=== PATIENT | female | born 1990 | race Two or more races ===

== ENCOUNTER 2016-09-12 03:39 | Inpatient (IN) | payer MEDICAID ==
[~2016-09-12] VITALS: Ht 152.4 cm; Wt 61.2 kg
[2016-09-12] MEDS ORDERED: LACT. RINGERS/OXYTOCIN 20UNITS 1,000 ML IV SCH ×2 (04:19→09:45)
[2016-09-12] MEDS: LACTATED RINGER'S 1,000 ML IV SCH ×2 (04:19→12:19)
[2016-09-12] MEDS ORDERED: LIDOCAINE 2%HCL (LOCAL ANESTH.) INJ 20ML MDV IJ ONE (04:30)
[2016-09-12] MEDS ORDERED: PHISODERM TOP SOLN 240ML BTL TOP PRN (04:30)
[2016-09-12] MEDS ORDERED: METHYLERGONOVINE MALEATE 0.2 MG/ML AMP IM PRN (04:30)
[2016-09-12] MEDS ORDERED: CARBOPROST TROMETHAMINE 250 MCG/1ML VIAL IM PRN (04:30)
[2016-09-12] MEDS ORDERED: WITCH HAZEL-GLYCERIN PAD TOP PRN (04:30)
[2016-09-12] MEDS ORDERED: DERMOPLAST 60ML BOTTLE TOP PRN (04:30)
[2016-09-12 05:09] LABS: Urine RBC None Seen /hpf (0 - 4)
[2016-09-12 05:16] LABS: Basophils # (auto) 0 uL; Basophils % (auto) 0.3 % (0.0-2.0); Eosinophils # (auto) 0 uL; Eosinophils % (auto) 0.7 % (0.0-7.0); Hematocrit 37.2 % (36.0-46.0); Hemoglobin 12.4 g/dL (12.2-16.2); Lymphocytes # (auto) 1.8 uL; Mean Corpuscular Hgb Conc. 33.4 g/dL (32.0-36.0); Mean Corpuscular Volume 92.7 fL (80.0-100.0); Mean Platelet Volume 7.8 fL (7.4-10.4); Monocytes # (auto) 0.5 uL; Neutrophils # (auto) 4.4 uL; Platelet Count (auto) 246 10^3/uL (140-450); Red Cell Distribution Width 13.6 % (11.6-16.0); White Blood Cell 6.8 10^3/uL (4.4-10.8)
[2016-09-12 05:22] LABS: Urine Bilirubin Negative (Negative); Urine Blood Negative /uL (Negative); Urine Color Yellow (Yellow); Urine Glucose Normal (Normal); Urine Ketone Negative (Negative); Urine Nitrite Negative (Negative); Urine Urobilinogen Normal (Negative)
[2016-09-12 05:30] LABS: Partial Thromboplastin Time 31.3 sec (22.64-33.71); Prothrombin Time 9.6 sec (9.37-12.3)
[2016-09-12 05:34] LABS: INR 0.88 (0.9-1.15)
[2016-09-12 05:40] LABS: Albumin 2.4 g/dL (3.4-5.0); BUN/Creatinine Ratio 13.6; Bilirubin, Total 0.2 mg/dL (0.2-1.0); Calcium 8.6 mg/dL (8.5-10.1); Potassium 3.6 mmol/L (3.5-5.1); Total Protein 6.7 g/dL (6.4-8.2)
[2016-09-12] MEDS ORDERED: PROMETHAZINE HCL 25 MG/ML 1ML ONE (08:35)
[2016-09-12] MEDS ORDERED: BUTORPHANOL TARTRATE 2 MG/1 ML VIAL ONE (08:35)
[2016-09-12] MEDS: BUTORPHANOL TARTRATE 2 MG/1 ML VIAL IV PRN ×3 (08:44→14:33)
[2016-09-12] MEDS ORDERED: TERBUTALINE SULFATE 1 MG/ML 1ML VIAL SC ONE (08:50)
[2016-09-12] MEDS ORDERED: SUCCINYLCHOLINE CHLORIDE 20 MG/ML 10ML VIAL IV ONE (09:02)
[2016-09-12] MEDS ORDERED: PHENYLEPHRINE INJ 10 MG/ML 5ML VIAL IV ONE (09:05)
[2016-09-12] MEDS ORDERED: fentaNYL CITRATE 100 MCG/2 ML VL ONE (09:11)
[2016-09-12] MEDS ORDERED: MIDAZOLAM HCL 1MG/1ML-2 ML VIAL ONE (09:11)
[2016-09-12] MEDS ORDERED: MEPERIDINE HCL (50 MG/ML) 1 ML VIAL ONE (09:12)
[2016-09-12] MEDS ORDERED: PROPOFOL 10 MG/ML 20 ML IV ONE (09:34)
[2016-09-12] MEDS ORDERED: METOCLOPRAMIDE HCL 5MG/ml INJ 2ml VIAL ONE (09:34)
[2016-09-12] MEDS ORDERED: KETOROLAC TROMETH 30 MG/ML 1ML VIAL ONE (09:34)
[2016-09-12] MEDS ORDERED: HYDROmorphone HCL 2 MG/ML VL IV PRN (09:45)
[2016-09-12] MEDS ORDERED: MORPHINE SULF INJ 2 MG/ML SYRINGE 1ML IV PRN ×2 (09:45→10:15)
[2016-09-12] MEDS ORDERED: ONDANSETRON HCL 4 MG/2 ML VIAL IV PRN (09:45)
[2016-09-12] MEDS ORDERED: PROMETHAZINE HCL 25 MG/ML 1ML IV ONE (10:00)
[2016-09-12] MEDS ORDERED: OXYTOCIN 10UNIT/ML 1ML VIAL ONE (10:11)
[2016-09-12] MEDS ORDERED: HYDROmorphone HCL 2 MG/ML VL ONE (10:12)
[2016-09-12] MEDS ORDERED: KETOROLAC TROMETH 30 MG/ML 1ML VIAL IV ONE (10:15)
[2016-09-12] MEDS ORDERED: LABETALOL HCL 5 MG/ML 4ML SYRINGE IV PRN (10:15)
[2016-09-12] MEDS ORDERED: ePHEDrine SULFATE 50 MG/ML AMP IV PRN (10:15)
[2016-09-12] MEDS ORDERED: ONDANSETRON HCL 4 MG/2 ML VIAL IV ONE (10:15)
[2016-09-12] MEDS: HYDROmorphone HCL 2 MG/ML VL IV PRN ×2 (10:16→10:26)
[2016-09-12 11:30] VITALS: BP 104/68
[2016-09-12 12:00] VITALS: BP 104/63
[2016-09-12] MEDS: ceFAZolin 1GM/50ML D5W 50 ML IV SCH ×2 (14:00→22:00)
[2016-09-12 16:00] VITALS: BP 99/60
[2016-09-12] MEDS: KETOROLAC TROMETH 30 MG/ML 1ML VIAL IV PRN (19:21)
[2016-09-12 19:27] LABS: Basophils # (auto) 0 uL; Basophils % (auto) 0.3 % (0.0-2.0); Eosinophils # (auto) 0 uL; Eosinophils % (auto) 0.1 % (0.0-7.0); Hematocrit 32.3 % (36.0-46.0); Hemoglobin 11.1 g/dL (12.2-16.2); Lymphocytes % (auto) 19.1 % (10.0-50.0); Mean Corpuscular Hemoglobin 31.5 pg (28.0-32.0); Mean Corpuscular Hgb Conc. 34.3 g/dL (32.0-36.0); Mean Corpuscular Volume 91.8 fL (80.0-100.0); Mean Platelet Volume 7.7 fL (7.4-10.4); Monocytes # (auto) 0.8 uL; Monocytes % (auto) 7.9 % (0.0-12.0); Neutrophils # (auto) 7.5 uL; Neutrophils % (auto) 72.6 % (37.0-80.0); Platelet Count (auto) 226 10^3/uL (140-450); Red Cell Distribution Width 13.6 % (11.6-16.0); White Blood Cell 10.4 10^3/uL (4.4-10.8)
[2016-09-12 19:45] VITALS: BP 99/60
[2016-09-12 23:50] VITALS: BP 98/62
[2016-09-13] VITALS (7 sets, daily range): BP systolic 92–105; BP diastolic 56–71
[2016-09-13] MEDS: KETOROLAC TROMETH 30 MG/ML 1ML VIAL IV PRN (04:24)
[2016-09-13] MEDS: ceFAZolin 1GM/50ML D5W 50 ML IV SCH ×2 (05:49→14:00)
[2016-09-13 06:46] LABS: Basophils # (auto) 0 uL; Basophils % (auto) 0.1 % (0.0-2.0); Eosinophils # (auto) 0 uL; Eosinophils % (auto) 0.1 % (0.0-7.0); Hemoglobin 10.9 g/dL (12.2-16.2); Lymphocytes # (auto) 0.8 uL; Lymphocytes % (auto) 11.4 % (10.0-50.0); Mean Corpuscular Hemoglobin 31.6 pg (28.0-32.0); Mean Corpuscular Hgb Conc. 34.1 g/dL (32.0-36.0); Mean Corpuscular Volume 92.7 fL (80.0-100.0); Mean Platelet Volume 7.7 fL (7.4-10.4); Monocytes # (auto) 0.4 uL; Monocytes % (auto) 5.1 % (0.0-12.0); Neutrophils # (auto) 5.8 uL; Neutrophils % (auto) 83.3 % (37.0-80.0); Platelet Count (auto) 211 10^3/uL (140-450); Red Cell Distribution Width 13.6 % (11.6-16.0)
[2016-09-13] MEDS ORDERED: HYDROcodone-ACET 5/325MG TAB PO PRN (09:30)
[2016-09-13] MEDS: DOCUSATE SOD 100 MG CAP PO SCH ×2 (10:00→21:55)
[2016-09-13] MEDS ORDERED: ACETAMINOPHEN 325 MG TAB PO ONE (12:47)
[2016-09-13] MEDS ORDERED: ACETAMINOPHEN 325 MG TAB PO PRN (13:00)
[2016-09-13 13:46] LABS: Basophils # (auto) 0 uL; Eosinophils # (auto) 0 uL; Hematocrit 34.6 % (36.0-46.0); Hemoglobin 11.7 g/dL (12.2-16.2); Lymphocytes # (auto) 0.5 uL; Lymphocytes % (auto) 7.8 % (10.0-50.0); Mean Corpuscular Hemoglobin 31.1 pg (28.0-32.0); Mean Corpuscular Hgb Conc. 33.8 g/dL (32.0-36.0); Mean Corpuscular Volume 92.2 fL (80.0-100.0); Mean Platelet Volume 7.8 fL (7.4-10.4); Monocytes # (auto) 0.3 uL; Monocytes % (auto) 4.7 % (0.0-12.0); Neutrophils # (auto) 5.9 uL; Neutrophils % (auto) 87.5 % (37.0-80.0); Platelet Count (auto) 216 10^3/uL (140-450); Red Cell Distribution Width 13.8 % (11.6-16.0); White Blood Cell 6.8 10^3/uL (4.4-10.8)
[2016-09-13] MEDS: LEVOFLOXACIN 500 MG TAB PO SCH (13:49)
[2016-09-13] MEDS: IBUPROFEN 800 MG TAB PO PRN (18:42)
[2016-09-13] MEDS: HYDROcodone-ACET 5/325MG TAB PO PRN (20:28)
[2016-09-14] MEDS: HYDROcodone-ACET 5/325MG TAB PO PRN ×4 (01:27→19:30)
[2016-09-14] MEDS: IBUPROFEN 800 MG TAB PO PRN ×3 (02:50→20:41)
[2016-09-14 04:08] VITALS: BP 100/66
[2016-09-14 07:00] VITALS: BP 93/61
[2016-09-14] MEDS: DOCUSATE SOD 100 MG CAP PO SCH ×2 (10:21→22:11)
[2016-09-14] MEDS: LEVOFLOXACIN 500 MG TAB PO SCH (10:25)
[2016-09-14 12:00] VITALS: BP 114/83
[2016-09-14 12:27] VITALS: BP 114/83
[2016-09-14 16:00] VITALS: BP 101/56
[2016-09-14 19:30] VITALS: BP 100/70
[2016-09-15] VITALS: BP 115/80
[2016-09-15] MEDS: HYDROcodone-ACET 5/325MG TAB PO PRN ×2 (00:24→06:25)
[2016-09-15 03:50] VITALS: BP 112/78
[2016-09-15] MEDS ORDERED: PRENCAP61 PO (06:51)
[2016-09-15 08:16] VITALS: BP 119/66
[2016-09-15] MEDS: DOCUSATE SOD 100 MG CAP PO SCH (10:00)
[2016-09-15] MEDS: LEVOFLOXACIN 500 MG TAB PO SCH (10:00)
[2016-09-15] MEDS: IBUPROFEN 800 MG TAB PO PRN (11:28)
[2016-09-15 12:00] VITALS: BP 110/65
== END 2016-09-15 12:10 | disposition home or self-care (01) | DRG 540 ==
LOC: OBSVTOIN 03:39 → LDRP 03:39
PROVIDERS: ADMIT Specialist; ATTEND Specialist
PROC: 10D00Z1 Extraction of Products of Conception, Low, Open Approach (ICD-10-PCS; principal; 2016-09-12 09:07)
DX: O76 Abnormality in fetal heart rate and rhythm complicating labor and delivery (principal); O42.92 Full-term premature rupture of membranes, unspecified as to length of time between rupture and onset of labor; Z37.0 Single live birth; Z3A.38 38 weeks gestation of pregnancy
CPT/HCPCS: 36415; 59025; 80053; 80307; 81001; 85025; 85610; 85730; 86850; 86900; 86901; 96365; 96366; 96375; G0378; J0330; J0690; J1885; J2250; J2370; J2590; J2704